=== PATIENT | female | born 1955 | race Caucasian/White ===

== ENCOUNTER 2016-08-11 07:04 | Day surgery (SDC) | payer OTHER ==
[~2016-08-11] VITALS: Ht 172.7 cm; Wt 115.8 kg
[~2016-08-11 07:04] MED LIST: OMEP20CA16 PO; SYN15 PO
[2016-08-11 08:22] VITALS: Ht 172.7 cm; Wt 115.8 kg
[2016-08-11 08:45] VITALS: BP 125/77; PULSE 65; RESP 20
[2016-08-11] MEDS ORDERED: FENTAnyl 50 MCG/ML VIAL ONE (09:02)
[2016-08-11] MEDS ORDERED: PROPOFOL 40 ML ONE (09:02)
[2016-08-11] MEDS ORDERED: MIDAZOLAM 1 MG/ML 2 ML INJ ONE (09:02)
[2016-08-11 10:12] VITALS: BP 113/66; PULSE 62; RESP 20
--- NOTE | 2016-08-11 18:03 | GILP ---
DATE OF PROCEDURE: NAME OF PROCEDURES: Colonoscopy and biopsy. SURGEON: Samson Spann MD PREOPERATIVE DIAGNOSIS: Screening colonoscopy. POSTOPERATIVE DIAGNOSES: 1. Colonoscopy all the way to the cecum. 2. Poor prep making the exam suboptimal. 3. Small sigmoid colon polyp was removed using the biopsy forceps. 4. Internal hemorrhoids. INDICATION FOR THE PROCEDURE: Ms. Rae Barlow is a 60-year-old female patient who was schedu led for screening colonoscopy. The procedure and possible complications were well explained to the patient. The patient understood and consented to the procedure. DESCRIPTION OF PROCEDURE: Under the influence of anesthesia, the colonoscope was carefully introduc ed in the rectum and, under direct vision, it was advanced all the way to the cecum. FINDINGS: The patient had poor prep making the exam suboptimal. She was noted to have small sigmoi d colon polyp and it was removed using the biopsy forceps. She had internal hemorrhoids. She tolerated the procedure very well and there was no complication from the procedure. At the end of the procedure, she was awake with stable vital signs and she was discharged home to the care of h er family. IMPRESSION: 1. Colonoscopy all the way to the cecum. 2. Poor prep making the exam suboptimal. 3. Small sigmoid colon polyp was removed using the biopsy forceps. 4. Internal hemorrhoids. PLAN: The patient may need next screening colonoscopy in 2 years because of the poor prep and subop timal nature of the examination. Dictated By: SAMSON GUO/CHANELL Conf#: [id number] DID#: [id number] CC: SAMSON SPANN MD;*EndCC*
== END 2016-08-11 14:27 | disposition home or self-care (01) ==
LOC: GIL 07:04
PROVIDERS: ATTEND Internal Medicine Gastroenterology
DX: Z12.11 Encounter for screening for malignant neoplasm of colon (principal); E03.9 Hypothyroidism, unspecified; K21.9 Gastro-esophageal reflux disease without esophagitis; Z86.73 Personal history of transient ischemic attack (TIA), and cerebral infarction without residual deficits; D12.5 Benign neoplasm of sigmoid colon; K64.8 Other hemorrhoids
CPT/HCPCS: 45380; 88305; J2250; J3010; Z7610

== ENCOUNTER 2018-01-04 22:07 | Emergency (ER) | END 2018-01-05 01:45 | disposition home or self-care (01) ==

== ENCOUNTER 2018-01-25 12:26 | Day surgery (SDC) | END 2018-01-25 19:40 | disposition home or self-care (01) ==

== ENCOUNTER 2018-10-13 10:39 | Observation (INO) | payer OTHER ==
[~2018-10-13] VITALS: Ht 175.3 cm; Wt 112.5 kg
[~2018-10-13 10:39] MED LIST changes: +LEVO150T64 PO; -SYN15 PO
[2018-10-13] MEDS ORDERED: SOD CHLORIDE 0.9% 500 ML IV STA (10:54)
[2018-10-13] MEDS ORDERED: MECLIZINE 12.5 MG TAB PO ONE (11:00)
--- NOTE | 2018-10-13 11:48 | ERD ---
ER Documentation Chief Complaint Chief Complaint onset weakness & dizziness, generalize body hot flashes HPI During the patient's encounter translation services were utilized Language: Filipino Source: Family 62-year-old female prior history of stroke without residual deficits who presents to the emergency room with dizziness. Starting early this morning the patient had dizziness that is described as a room spinning sensation that was transient lasting 3-5 seconds with complete resolution. However, the patient did have associated vision loss. She states binocular black vision loss that was additionally temporary for several seconds. This was followed by a period of blurred vision. She denied any slurred speech or motor weakness. The patient is feeling anxious about these episodes and having occasional palpitations. Symptoms are improving currently. She did describe a warm sensation from her toes to her head. ROS All systems reviewed and are negative except as per history of present illness. Medications Home Meds Reported Medications Divalproex Sodium* (Depakote*) 500 Mg Tablet.dr, 500 MG PO BID, #120 TAB 10/13/18 Omeprazole* (Omeprazole*) 20 Mg Capsule.dr, 20 MG PO DAILY, #30 CAP 10/13/18 Levothyroxine Sodium* (Levothyroxine Sodium*) 150 Mcg Tablet, 150 MCG PO BEFORE BREAKFAST, #30 TAB 10/13/18 Discontinued Reported Medications Omeprazole* (Omeprazole*) 20 Mg Capsule.dr, 20 MG PO DAILY, #30 CAP 01/25/18 Levothyroxine Sodium* (Levoxyl*) 150 Mcg Tablet, 150 MCG PO BEFORE BREAKFAST, #30 TAB 01/25/18 Allergies Allergies: Coded Allergies: No Known Allergies (Verified Allergy, Mild, 10/13/18) PMhx/Soc History of Surgery: Yes (C SECTION , RT KNEE REPLACEMENT) Anesthesia Reaction: No Hx Neurological Disorder: Yes (TIA,HARPER) Hx Respiratory Disorders: No Hx Cardiac Disorders: No Hx Psychiatric Problems: No Hx Miscellaneous Medical Probl: Yes (Hypothyroidsim) Hx Alcohol Use: No Hx Substance Use: No Hx Tobacco Use: No Smoking Status: Never smoker FmHx Family History: No diabetes Physical Exam Vitals Vital Signs Date Temp Pulse Resp B/P (MAP) Pulse Ox O2 O2 Flow FiO2 Time Delivery Rate 10/13/18 78 18 120/78 Room Air 12:32 (92) 10/13/18 97.6 112 20 160/100 100 10:42 (120) Physical Exam General: Well developed, well nourished, no acute distress Head: Normocephalic, atraumatic. Eyes: Pupils equally reactive, EOM intact, no field cuts, no nystagmus horizontal or vertical or rotary ENT: Moist mucous membranes Neck: Supple, no lymphadenopathy Respiratory: Lungs clear bilaterally, no distress Cardiovascular: RRR, no murmurs, rubs, or gallops Abdominal: Soft, non-tender, non-distended, no peritoneal signs : Deferred MSK: No edema, no unilateral swelling, 5/5 strength Neurologic: Alert and oriented, moving all extremities, normal speech, no focal weakness, no cerebellar signs, normal rapid alternating movements, NIHSS of 0 Skin: No rash Psych: Normal mood Result Diagram: 10/13/18 1058 10/13/18 1059 Results 24 hrs Laboratory Tests Test 10/13/18 10:58 10/13/18 10:59 10/13/18 11:48 White Blood Count 7.3 10^3/ul Red Blood Count 5.14 10^6/ul Hemoglobin 14.9 g/dl Hematocrit 46.9 % Mean Corpuscular Volume 91.2 fl Mean Corpuscular Hemoglobin 29.0 pg Mean Corpuscular 31.8 g/dl Hemoglobin Concent Red Cell Distribution Width 14.2 % Platelet Count 263 10^3/UL Mean Platelet Volume 10.1 fl Immature Granulocytes % 0.400 % Neutrophils % 59.1 % Lymphocytes % 32.7 % Monocytes % 5.9 % Eosinophils % 1.2 % Basophils % 0.7 % Nucleated Red Blood Cells % 0.0 /100WBC Immature Granulocytes # 0.030 10^3/ul Neutrophils # 4.3 10^3/ul Lymphocytes # 2.4 10^3/ul Monocytes # 0.4 10^3/ul Eosinophils # 0.1 10^3/ul Basophils # 0.1 10^3/ul Nucleated Red Blood Cells # 0.0 10^3/ul Prothrombin Time 12.6 Sec Prothrombin Time Ratio 1.0 INR International 0.93 Normalized Ratio Activated Partial Thromboplast 28.3 Sec Time Hemoglobin A1c 5.0 % Urine Color YELLOW Urine Clarity CLEAR Urine pH 5.0 Urine Specific [place] 1.004 Urine Ketones NEGATIVE mg/dL Urine Nitrite NEGATIVE mg/dL Urine Bilirubin NEGATIVE mg/dL Urine Urobilinogen NEGATIVE mg/dL Urine Leukocyte Esterase NEGATIVE Lucius/ul Urine Hemoglobin NEGATIVE mg/dL Urine Glucose NEGATIVE mg/dL Urine Total Protein NEGATIVE mg/dl Sodium Level 142 mmol/L Potassium Level 4.5 mmol/L Chloride Level 104 mmol/L Carbon Dioxide Level 26 mmol/L Anion Gap 12 Blood Urea Nitrogen 28 mg/dl Creatinine 1.34 mg/dl Est Glomerular Filtrat 40 mL/min Rate mL/min Glucose Level 124 mg/dl Calcium Level 9.8 mg/dl Troponin I < 0.012 ng/ml Triglycerides Level 102 mg/dl Cholesterol Level 219 mg/dl LDL Cholesterol, Calculated 139 mg/dl HDL Cholesterol 60 mg/dl Cholesterol/HDL Ratio 3.6 RATIO Urine Opiates Screen Negative Urine Barbiturates Negative Urine Amphetamines Screen Negative Urine Benzodiazepines Screen Negative Urine Cocaine Screen Negative Urine Cannabinoids Negative Bedside Glucose 78 mg/dL Current Medications Medications Dose Sig/Ankit Start Time Status Last (Trade) Ordered Route PRN Stop Time Admin Dose Reason Admin Sodium 500 ml @ Q1H STAT 10/13/18 DC 10/13/18 Chloride 500 mls/hr IV 10:54 10/13/18 11:32 11:53 Meclizine 25 mg ONCE ONCE 10/13/18 DC 10/13/18 HCl PO 11:00 10/13/18 11:32 (Antivert) 11:01 Aspirin 162 mg ONCE ONCE 10/13/18 DC 10/13/18 (Aspirin) PO 12:00 10/13/18 12:29 12:01 Ondansetron 4 mg ONCE STAT 10/13/18 DC 10/13/18 HCl (Zofran IV 12:23 10/13/18 12:29 Inj) 12:25 Ondansetron 4 mg ER BRIDGE 10/13/18 HCl (Zofran PRN IV 13:00 10/14/18 Inj) NAUSEA/VOMITI 12:59 NG 650 mg ER BRIDGE 10/13/18 Acetaminophen PRN PO 13:00 10/14/18 (Tylenol .MILD PAIN 12:59 Tab) 1-3 OR TEMP Procedures/MDM EKG, MONITORS, & DIAGNOSTIC IMAGING: EKG: I reviewed and interpreted a 12-lead EKG. Rhythm: Normal sinus rhythm ST Changes: No contiguous ST segment elevations T waves: No contiguous T wave inversions Impression: No evidence of acute cardiac ischemia Chest x-ray: I reviewed and interpreted a 1 view of the chest Mediastinum: No enlargement Cardiac silhouette: No cardiomegaly Airspace: Clear lung guerrier bilaterally without evidence of pneumothorax Bones: No evidence of fracture CT brain IMPRESSION: 1. No acute intracranial abnormality. 2. 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 LAB INTERPRETATION: I reviewed the laboratory testing and it shows no evidence of acute process MEDICAL DECISION MAKING: The patient's symptoms are somewhat concerning for possible central process. The patient's binocular vision loss could be consistent with amaurosis fugax. The patient has no focal findings currently and her NIH SS is 0. The patient is not a TPA candidate given no focal deficits currently. The risks outweigh the benefits. The patient is not a vascular interventional candidate for similar reasoning. However I do believe that laboratory testing, CT imaging and inpatient hospitalization for MRI, neurology consultation would be appropriate. Anxiety may be playing some role as well. Consider possible peripheral vertigo additionally. ER COURSE: * Aspirin given after negative CT brain * Patient remained stable at this time. CONSULTATION: None DISPOSITION PLAN: Accepting care team and consultations: I discussed the current laboratory data, diagnostic imaging and emergency care provided. Admitting team: Panel team notified via [employer] Admitting team indication: Insurance directed Departure Diagnosis: Primary Impression: Amaurosis fugax, both eyes Additional Impression: Vertigo Condition: Stable TAMIKA GALVAN MD Oct 13, 2018 11:48
[2018-10-13] MEDS ORDERED: OMEP20CA16 PO (11:58)
[2018-10-13] MEDS ORDERED: LEVO150T7 PO (11:58)
[2018-10-13] MEDS ORDERED: DIVA-48 PO (11:59)
[2018-10-13] MEDS ORDERED: ASPIRIN 81 MG TAB PO ONE (12:00)
[2018-10-13] MEDS ORDERED: ONDANSETRON 4 MG INJ IV STA (12:23)
[2018-10-13] MEDS ORDERED: ONDANSETRON 4 MG INJ IV PRN (13:00)
[2018-10-13] MEDS ORDERED: ACETAMINOPHEN 325 MG TAB PO PRN (13:00)
--- NOTE | 2018-10-13 14:15 | HP ---
Date/Time of Note Date/Time of Note DATE: 10/13/18 TIME: 14:06 Assessment/Plan VTE Prophylaxis SCD applied (from Nsg): Yes Pharmacological prophylaxis: heparin Lines/Catheters IV Catheter Type (from Nrsg): Saline Lock Assessment/Plan Hospital Course 62 yo female with h/o hypothyroid, paroxysmal A Fib, questionable reported h/o CVA and neurocystercercosis presents with episode of dizziness/nausea/vision loss which resolved - Most likely I believe her symptoms sound like vasovagal near-syncope give clear prodrome and occurred while standing with improvement while supine - Possible this is related to paroxysmal A Fib. In NSR here. Monitor on telemetry - Possible this is neurologic origin -> will consult Dr Harley Result Diagram: 10/13/18 1058 10/13/18 1059 Results 24hrs Laboratory Tests Test 10/13/18 10:58 10/13/18 10:59 10/13/18 11:48 White Blood Count 7.3 # Red Blood Count 5.14 Hemoglobin 14.9 Hematocrit 46.9 Mean Corpuscular Volume 91.2 Mean Corpuscular Hemoglobin 29.0 Mean Corpuscular Hemoglobin Concent 31.8 L Red Cell Distribution Width 14.2 Platelet Count 263 Mean Platelet Volume 10.1 Immature Granulocytes % 0.400 Neutrophils % 59.1 Lymphocytes % 32.7 Monocytes % 5.9 Eosinophils % 1.2 Basophils % 0.7 Nucleated Red Blood Cells % 0.0 Immature Granulocytes # 0.030 Neutrophils # 4.3 Lymphocytes # 2.4 Monocytes # 0.4 Eosinophils # 0.1 Basophils # 0.1 Nucleated Red Blood Cells # 0.0 Prothrombin Time 12.6 Prothrombin Time Ratio 1.0 INR International Normalized Ratio 0.93 Activated Partial Thromboplast Time 28.3 Hemoglobin A1c 5.0 Urine Color YELLOW Urine Clarity CLEAR Urine pH 5.0 Urine Specific [place] 1.004 Urine Ketones NEGATIVE Urine Nitrite NEGATIVE Urine Bilirubin NEGATIVE Urine Urobilinogen NEGATIVE Urine Leukocyte Esterase NEGATIVE Urine Hemoglobin NEGATIVE Urine Glucose NEGATIVE Urine Total Protein NEGATIVE Sodium Level 142 Potassium Level 4.5 Chloride Level 104 Carbon Dioxide Level 26 Anion Gap 12 Blood Urea Nitrogen 28 H Creatinine 1.34 H Est Glomerular Filtrat Rate mL/min 40 L Glucose Level 124 Calcium Level 9.8 Troponin I < 0.012 Triglycerides Level 102 Cholesterol Level 219 H LDL Cholesterol, Calculated 139 HDL Cholesterol 60 Cholesterol/HDL Ratio 3.6 Urine Opiates Screen Negative Urine Barbiturates Negative Urine Amphetamines Screen Negative Urine Benzodiazepines Screen Negative Urine Cocaine Screen Negative Urine Cannabinoids Negative Bedside Glucose 78 HPI/ROS Admit Date/Time Admit Date/Time Hx of Present Illness 62 yo female with h/o A Fib, hypothyroid, questionable h/o CVA /neurocystercercosis presents with episode of dizziness/vision loss Patient in [facility] until today. She was standing washing dishes in her kitchen. She began to feel dizzy and a feeling of flushing. Had transient vision loss. Also nausea. Symptoms eventually resolved. Then she was in the shower later and felt the same dizziness symptoms. Came to ED for evaluation as she felt her heart beating for quickly afterwards. Has been asymptomatic since. No chest pain. No SOB. No convulsions ROS Constitutional: no complaints, improved Eyes: no complaints ENT: no complaints Respiratory: no complaints Cardiovascular: no complaints Gastrointestinal: no complaints Genitourinary: no complaints Musculoskeletal: no complaints Skin: no complaints Neurologic: no complaints Endocrine: no complaints Lymphatic: no complaints Psychological: no complaints, nl mood/affect Immunologic: no complaints PMH/Family/Social Past Medical History Medical History: no pertinent history Medications Current Medications Ondansetron HCl (Zofran Inj) 4 mg ER BRIDGE PRN IV NAUSEA/VOMITING; Start 10/13/18 at 13:00; Stop 10/14/18 at 12:59 Acetaminophen (Tylenol Tab) 650 mg ER BRIDGE PRN PO .MILD PAIN 1-3 OR TEMP; Start 10/13/18 at 13:00; Stop 10/14/18 at 12:59 Coded Allergies: No Known Allergies (Verified Allergy, Mild, 10/13/18) Past Surgical History Past Surgical Hx: no surgical history Family History Significant Family History: no pertinent family hx Social History Alcohol Use: none Smoking Status: Never smoker Drug Use: none Exam/Review of Systems Vital Signs Vitals Vital Signs Date Temp Pulse Resp B/P (MAP) Pulse Ox O2 O2 Flow FiO2 Time Delivery Rate 10/13/18 78 18 120/78 Room Air 12:32 (92) 10/13/18 97.6 100 10:42 Exam Constitutional: alert, oriented, well developed Psych: no complaints, nl mood/affect Head: normocephalic, atraumatic Eyes: nl conjunctiva, EOMI, nl lids, nl sclera, PERRL ENMT: nl external ears & nose, nl lips & teeth, nl nasal mucosa & septum Neck: supple, non-tender Respiratory: clear to auscultation, normal air movement Cardiovascular: regular rate and rhythm, nl pulses Gastrointestinal: soft, nl liver, spleen, non-tender Musculoskeletal: nl extremities to inspection Extremities: normal pulses Neurological: MULTIMEDIA COORDINATOR II-XII intact, nl mental status, nl speech, nl strength Skin: nl turgor; No rash or lesions Lymph: nl lymph nodes TARYN KIRKLAND MD Oct 13, 2018 14:15
[2018-10-13] MEDS ORDERED: HYDROCODONE/APAP (5/325) TAB PO PRN (14:30)
[2018-10-13] MEDS ORDERED: NACL 0.9% 3 ML SYG IV SCH (14:30)
--- NOTE | 2018-10-13 15:37 | CONS ---
Assessment/Plan Assessment/Plan Hospital Course 62 F w/ reported Hx of TIA and other comorbidities, who presents for evaluation of brief binocular vision loss in the context of dizziness.. Prior d/c summaries suggest similar presentations in the past (2010; 2014..)... The clinical picture is most consistent w/ presyncope. A focal SPIKE MACHINE HEATER process is less likely....though focal seizure could in theory present similarly.. She is noted to be prescribed Depakote for seizure ppx as an outpatient (though she is unsure exactly why); she admits poor medication compliance.. 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 P: Clarify prior TIA Hx when able; start asa/lipitor daily for secondary prevention for now.. Add EEG to evaluate for epileptiform activity Add Depakote level; OK to continue Depakote per ops for now Ativan iv prn prolonged seizure or cluster.. Other medical workup and management per primary Will follow clinically..to recommend additional neurologic studies as necessary Consultation Date/Type/Reason Admit Date/Time Type of Consult Neurology Reason for Consultation dizziness and vision loss Requesting Provider: TARYN KIRKLAND MD Date/Time of Note DATE: 10/13/18 TIME: 15:17 Hx of Present Illness 62 yo female with h/o A Fib, hypothyroid, questionable h/o CVA/neurocyst ercercosis presents with episode of dizziness/vision loss Patient in [facility] until today. She was standing washing dishes in her kitchen. She began to feel dizzy and a feeling of flushing. Had transient vision loss. Also nausea. Symptoms eventually resolved. Then she was in the shower later and felt the same dizziness symptoms. Came to ED for evaluation as she felt her heart beating for quickly afterwards. Has been asymptomatic since. No chest pain. No SOB. No convulsions 12 PT ROS ow neg Exam/Review of Systems Exam Vitals Vital Signs Date Temp Pulse Resp B/P (MAP) Pulse Ox O2 O2 Flow FiO2 Time Delivery Rate 10/13/18 78 18 120/78 Room Air 12:32 (92) 10/13/18 97.6 100 10:42 Exam PE: Gen Appearance: No Apparent Distress HEENT: Normocephalic Cardiovascular: Regular rate Lungs: Clear bilaterally Abdomen: Soft Extremities: Dry NE: The patient was alert and oriented. Language was normal. Fund of knowledge was normal. Pupils were equal and reactive to light. There was no afferent pupillary defect. Visual guerrier were normal. Funduscopic examination was limited. Extra-ocular mo vements were full. Ptosis was absent. There was no nystagmus. Facial sensation was normal. Face was symmetric with normal strength. Hearing was intact. Palate movements were normal. Neck strength was normal. There was normal tongue bulk and speed of movement. Tone was normal. Muscle bulk was normal. I did not see fasciculations. Arms and legs were strong. Vibration sensation was normal. Temperature and pinprick sensation was normal. Rapid alternating movements were normal. There was no dysmetria. There was no intention tremor. Gait was deferred due to bedrest. Arm and leg reflexes were symmetric. Meza's sign was absent. Plantar responses were flexor. Results Result Diagram: 10/13/18 1058 10/13/18 1059 Results 24hrs Laboratory Tests Test 10/13/18 10:58 10/13/18 10:59 10/13/18 11:48 10/13/18 14:35 White Blood Count 7.3 # Red Blood Count 5.14 Hemoglobin 14.9 Hematocrit 46.9 Mean Corpuscular Volume 91.2 Mean Corpuscular 29.0 Hemoglobin Mean Corpuscular 31.8 L Hemoglobin Concent Red Cell Distribution 14.2 Width Platelet Count 263 Mean Platelet Volume 10.1 Immature Granulocytes % 0.400 Neutrophils % 59.1 Lymphocytes % 32.7 Monocytes % 5.9 Eosinophils % 1.2 Basophils % 0.7 Nucleated Red Blood 0.0 Cells % Immature Granulocytes # 0.030 Neutrophils # 4.3 Lymphocytes # 2.4 Monocytes # 0.4 Eosinophils # 0.1 Basophils # 0.1 Nucleated Red Blood 0.0 Cells # Prothrombin Time 12.6 Prothrombin Time Ratio 1.0 INR International 0.93 Normalized Ratio Activated 28.3 Partial Thromboplast Time Hemoglobin A1c 5.0 Urine Color YELLOW Urine Clarity CLEAR Urine pH 5.0 Urine Specific [place] 1.004 Urine Ketones NEGATIVE Urine Nitrite NEGATIVE Urine Bilirubin NEGATIVE Urine Urobilinogen NEGATIVE Urine Leukocyte Esterase NEGATIVE Urine Hemoglobin NEGATIVE Urine Glucose NEGATIVE Urine Total Protein NEGATIVE Sodium Level 142 Potassium Level 4.5 Chloride Level 104 Carbon Dioxide Level 26 Anion Gap 12 Blood Urea Nitrogen 28 H Creatinine 1.34 H Est Glomerular Filtrat 40 L Rate mL/min Glucose Level 124 Calcium Level 9.8 Troponin I < 0.012 < 0.012 Triglycerides Level 102 Cholesterol Level 219 H LDL Cholesterol, 139 Calculated HDL Cholesterol 60 Cholesterol/HDL Ratio 3.6 Urine Opiates Screen Negative Urine Barbiturates Negative Urine Amphetamines Negative Screen Urine Benzodiazepines Negative Screen Urine Cocaine Screen Negative Urine Cannabinoids Negative Bedside Glucose 78 Medications Medication Current Medications Ondansetron HCl (Zofran Inj) 4 mg ER BRIDGE PRN IV NAUSEA/VOMITING; Start 10/13/18 at 13:00; Stop 10/14/18 at 12:59 Acetaminophen (Tylenol Tab) 650 mg ER BRIDGE PRN PO .MILD PAIN 1-3 OR TEMP; Start 10/13/18 at 13:00; Stop 10/14/18 at 12:59 IV Flush (NS 3 ml) 3 ml PER PROTOCOL IV ; Start 10/13/18 at 14:30 Acetaminophen/ Hydrocodone Bitart ([place] (5/325)) 2 tab Q6H PRN PO .SEVERE PAIN 7-10; Start 10/13/18 at 14:30 Past Medical History Medical History: no pertinent history Home Meds Reported Medications Divalproex Sodium* (Depakote*) 500 Mg Tablet.dr, 500 MG PO BID, #120 TAB 10/13/18 Omeprazole* (Omeprazole*) 20 Mg Capsule.dr, 20 MG PO DAILY, #30 CAP 10/13/18 Levothyroxine Sodium* (Levothyroxine Sodium*) 150 Mcg Tablet, 150 MCG PO BEFORE BREAKFAST, #30 TAB 10/13/18 Discontinued Reported Medications Omeprazole* (Omeprazole*) 20 Mg Capsule.dr, 20 MG PO DAILY, #30 CAP 01/25/18 Levothyroxine Sodium* (Levoxyl*) 150 Mcg Tablet, 150 MCG PO BEFORE BREAKFAST, #30 TAB 01/25/18 Medications Current Medications Ondansetron HCl (Zofran Inj) 4 mg ER BRIDGE PRN IV NAUSEA/VOMITING; Start 10/13/18 at 13:00; Stop 10/14/18 at 12:59 Acetaminophen (Tylenol Tab) 650 mg ER BRIDGE PRN PO .MILD PAIN 1-3 OR TEMP; Start 10/13/18 at 13:00; Stop 10/14/18 at 12:59 IV Flush (NS 3 ml) 3 ml PER PROTOCOL IV ; Start 10/13/18 at 14:30 Acetaminophen/ Hydrocodone Bitart ([place] ()) 2 tab Q6H PRN PO .SEVERE PAIN 7-10; Start 10/13/18 at 14:30 Allergies: Coded Allergies: No Known Allergies (Verified Allergy, Mild, 10/13/18) Past Surgical History Past Surgical Hx: no surgical history Social History Alcohol Use: none Smoking Status: Never smoker Drug Use: none АЛЕКСАНДР SAWYER Oct 13, 2018 15:28
[2018-10-13 20:40] VITALS: Ht 175.3 cm; Wt 112.5 kg
[2018-10-13] MEDS ORDERED: ATORVASTATIN 40 MG TAB PO SCH (21:00)
[2018-10-13 21:08] VITALS: BP 142/80; PULSE 69; RESP 18
[2018-10-14 02:00] VITALS: BP 104/57; PULSE 69; RESP 17
[2018-10-14] MEDS ORDERED: PANTOPRAZOLE (EC) 40 MG TAB PO SCH (06:00)
--- NOTE | 2018-10-14 06:40 | EEG ---
EEG NOTE Report Details DATE OF TEST: 10/13/18 HISTORY: The patient is a [id number] F who presents vision loss and dizziness. This EEG is requested to evaluate for seizures. SEDATION: None. CONDITIONS OF RECORDING: This EEG was recorded digitally on the [employer] machine, using the International 10-20 System of electrodes plus anterior temporals and [place]. STATES SAMPLED: Wakefulness and drowsiness. FINDINGS: During wakefulness, there is a 8.5 Hz posterior dominant rhythm. There is a normal [id number] frequency-amplitude gradient. The remainder of the awake background is normal. Photic stimulation elicits bilateral driving responses at some intermediate flash frequencies. Hyperventilation, performed with good effort, produces a negligible change in the background. The patient became drowsy but did not pass into sleep. No asymmetries, focal abnormalities or epileptiform discharges were seen. IMPRESSION: Normal electroencephalogram during wakefulness and drowsiness. АЛЕКСАНДР SAWYER Oct 14, 2018 06:40
[2018-10-14] MEDS ORDERED: LEVOTHYROXINE 150 MCG TAB PO SCH (07:00)
[2018-10-14 08:00] VITALS: BP 122/70; PULSE 68; RESP 17
[2018-10-14] MEDS ORDERED: ASPIRIN (EC) 81 MG TAB PO SCH (09:00)
[2018-10-14] MEDS ORDERED: NON-FORMULARY/PATIENT OWN MED (Omeprazole* 20 MG) PO SCH (09:00)
--- NOTE | 2018-10-14 09:46 | PDOCDIS ---
Discharge Instructions DIAGNOSIS Discharge Diagnosis Syncope CONDITION 2 [id number] Patient Condition: [id number] Stable FOLLOW UP/APPOINTMENTS Follow-up Plan Stop taking depakote, you do not need it Please make an appointment to see your primary doctor TARYN KIRKLAND MD Oct 14, 2018 09:46
[2018-10-14 10:25] VITALS: BP 113/67; PULSE 85
--- NOTE | 2018-10-14 10:36 | CONS ---
Assessment/Plan Assessment/Plan Hospital Course 62 F w/ reported Hx of TIA and other comorbidities, who presents for evaluation of brief binocular vision loss in the context of dizziness.. Prior d/c summaries suggest similar presentations in the past (2010; 2014..)... The clinical picture is most consistent w/ presyncope. A focal [employer] process is unlikely....though focal seizure could in theory present similarly.. EEG is reassuringly normal; serum Depakote level is nonexistent.. She is noted to be prescribed Depakote for seizure ppx as an outpatient (though she is unsure exactly why); she admits poor medication compliance due to adverse effects.. 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 P: Cont asa/lipitor daily for secondary prevention Hold depakote, indefinitely Other medical workup and management per primary Will follow clinically..to recommend additional neurologic studies as necessary Consultation Date/Type/Reason Admit Date/Time Oct 13, 2018 at 12:59 Type of Consult Neurology Reason for Consultation dizziness and vision loss Requesting Provider: TARYN KIRKLAND MD Date/Time of Note DATE: 10/14/18 TIME: 10:32 24 HR Interval Summary Free Text/Dictation s/p EEG. No recurrence of Sx.. Exam Vital Signs Vitals Vital Signs Date Temp Pulse Resp B/P (MAP) Pulse Ox O2 O2 Flow FiO2 Time Delivery Rate 10/14/18 85 113/67 97 10:25 (82) 10/14/18 97.9 17 Room Air 08:00 Exam PE: Gen Appearance: No Apparent Distress HEENT: Normocephalic Cardiovascular: Regular rate Lungs: Clear bilaterally Abdomen: Soft Extremities: Dry NE: The patient was alert and oriented. Language was normal. Fund of knowledge was normal. Pupils were equal and reactive to light. There was no afferent pupillary defect. Visual guerrier were normal. Funduscopic examination was limited. Extra-ocular movements were full. Ptosis was absent. There was no nystagmus. Facial sensation was normal. Face was symmetric with normal strength. Hearing was intact. Palate movements were normal. Neck strength was normal. There was normal tongue bulk and speed of movement. Tone was normal. Muscle bulk was normal. I did not see fasciculations. Arms and legs were strong. Vibration sensation was normal. Temperature and pinprick sensation was normal. Rapid alternating movements were normal. There was no dysmetria. There was no intention tremor. Gait was deferred due to bedrest. Arm and leg reflexes were 2+ and symmetric. Meza's sign was absent. Plantar responses were flexor. АЛЕКСАНДР SAWYER Oct 14, 2018 10:36
[2018-10-14 13:40] VITALS: BP 101/64; PULSE 63; RESP 18
--- NOTE | 2018-10-14 16:32 | DS ---
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 She was standing washing dishes in her kitchen. She began to feel dizzy and a feeling of flushing. Had transient vision loss. Also nausea. Symptoms eventually resolved. Then she was in the shower later and felt the same dizziness symptoms. Came to ED for evaluation as she felt her heart beating for quickly afterwards. Has been asymptomatic since. No chest pain. No SOB. No convulsions Hospital Course 62 yo female with h/o hypothyroid, paroxysmal A Fib, questionable reported h/o CVA and neurocystercercosis presents with episode of dizziness/nausea/vision loss which resolved - Most likely I believe her symptoms were vasovagal near-syncope given clear prodrome and occurred while standing with improvement while supine - Possible this is related to paroxysmal A Fib. In NSR here. Monitored on telemetry with arrythmia - Possible this was neurologic origin was considered. Dr Harley performed EEG which was normal. The patient was advised to stop taking depakote She was instructed to follow up with her PMD Home Meds Reported Medications Levothyroxine Sodium* (Levothyroxine Sodium*) 150 Mcg Tablet, 150 MCG PO BEFORE BREAKFAST, #30 TAB 10/13/18 Discontinued Reported Medications Divalproex Sodium* (Depakote*) 500 Mg Tablet., 500 MG PO BID, #120 TAB 10/13/18 Omeprazole* (Omeprazole*) 20 Mg Capsule., 20 MG PO DAILY, #30 CAP 10/13/18 Omeprazole* (Omeprazole*) 20 Mg Capsule., 20 MG PO DAILY, #30 CAP 01/25/18 Levothyroxine Sodium* (Levoxyl*) 150 Mcg Tablet, 150 MCG PO BEFORE BREAKFAST, #30 TAB 01/25/18 Follow-up Plan Stop taking depakote, you do not need it Please make an appointment to see your primary doctor Primary Care Provider [facility] Pending Labs Laboratory Tests Test 10/14/18 05:14 White Blood Count 7.0 10^3/ul (4.8-10.8) Red Blood Count 4.88 10^6/ul (4.20-5.40) Hemoglobin 14.0 g/dl (12.0-16.0) Hematocrit 44.4 % (37.0-47.0) Mean Corpuscular Volume 91.0 fl (82.0-101.0) Mean Corpuscular Hemoglobin 28.7 pg (29.0-33.0) Mean Corpuscular Hemoglobin Concent 31.5 g/dl (32.0-37.0) Red Cell Distribution Width 14.5 % (11.5-14.5) Platelet Count 239 10^3/UL (140-415) Mean Platelet Volume 10.6 fl (7.4-10.4) Immature Granulocytes % 0.100 % (0.001-0.429) Neutrophils % 53.3 % (39.0-77.0) Lymphocytes % 38.3 % (15.0-51.0) Monocytes % 5.7 % (0.0-11.0) Eosinophils % 1.6 % (0.0-7.0) Basophils % 1.0 % (0.0-2.0) Nucleated Red Blood Cells % 0.0 /100WBC (0.0-0.0) Immature Granulocytes # 0.010 10^3/ul (0.0-0.031) Neutrophils # 3.7 10^3/ul (1.6-7.5) Lymphocytes # 2.7 10^3/ul (0.8-2.9) Monocytes # 0.4 10^3/ul (0.3-0.9) Eosinophils # 0.1 10^3/ul (0.0-0.5) Basophils # 0.1 10^3/ul (0.0-0.1) Nucleated Red Blood Cells # 0.0 10^3/ul (0.0-0.0) Sodium Level 142 mmol/L (135-144) Potassium Level 4.5 mmol/L (3.5-5.1) Chloride Level 105 mmol/L (97-110) Carbon Dioxide Level 26 mmol/L (21-31) Anion Gap 11 (5-13) Blood Urea Nitrogen 22 mg/dl (7-20) Creatinine 1.15 mg/dl (0.44-1.00) Est Glomerular Filtrat Rate mL/min 48 mL/min (>60) Glucose Level 83 mg/dl (70-220) Hemoglobin A1c 5.1 % (0-5.9) Calcium Level 9.4 mg/dl (8.4-10.2) Troponin I < 0.012 ng/ml (0.000-0.120) TARYN KIRKLAND MD Oct 14, 2018 16:32
== END 2018-10-14 13:55 | disposition home or self-care (01) ==
LOC: E/R 10:39 → PP2 12:59 → EDBEDREQSVC 18:30 → EDBEDREQTM 18:30 → EDBEDREQ 18:30
PROVIDERS: ADMIT Internal Medicine; ATTEND Internal Medicine
DX: R55 Syncope and collapse (principal); I48.91 Unspecified atrial fibrillation; E03.9 Hypothyroidism, unspecified
CPT/HCPCS: 36415; 70450; 71045; 80048; 80061; 80164; 80307; 81003; 82962; 83036; 84484; 85025; 85610; 85730; 93005; 95819; 96374; J2405; J7040; Z7500; Z7502; Z7610; 99217; G0378